=== PATIENT | female | born 1965 | race Caucasian/White ===

== ENCOUNTER 2020-03-29 19:50 | Inpatient (IN) | payer OTHER ==
[2020-03-29] MEDS ORDERED: IPRATROPIUM-ALBUTEROL 3 ML NEB INHALATION PRN (22:05)
[2020-03-29] MEDS ORDERED: FUROSEMIDE 10 MG/ML 4 ML VIAL IV STA (23:05)
[2020-03-29] MEDS: methylPREDNISolone SOD SUCCI 40 MG/ML 1 ML VIAL IV SCH (23:38)
[2020-03-29] MEDS: ALPRAZolam 0.25 MG TAB PO PRN (23:38)
[2020-03-30] MEDS ORDERED: IPRATROPIUM-ALBUTEROL 3 ML NEB INHALATION SCH
--- NOTE | 2020-03-30 00:06 | XR ---
EXAMINATION TYPE: XR chest 1V portable DATE OF EXAM: 03/29/2020 COMPARISON: 09/23/2012 HISTORY: Short of breath TECHNIQUE: FINDINGS: Heart and mediastinum are normal. Lungs are clear. Costophrenic angles are clear. There are no hilar masses. There are chest leads. Bony thorax is intact. IMPRESSION: Normal chest. No change.
[2020-03-30 06:07] LABS: Glucose,Whole Blood 156 mg/dL (75-99)
[2020-03-30] MEDS: methylPREDNISolone SOD SUCCI 40 MG/ML 1 ML VIAL IV SCH (06:16)
[2020-03-30] MEDS: INSULIN ASPART (NovoLOG) 100 UNIT/ML VIAL SQ SCH ×4 (06:16→20:27)
[2020-03-30 06:30] LABS: Basophils % (A) 0 %; Eosinophils % (A) 0 %; HCT 45.9 % (34.0-46.0); Lymphocytes # (A) 1.1 k/uL (1.0-4.8); Lymphocytes % (A) 5 %; MCH 28.5 pg (25.0-35.0); MCHC 30.4 g/dL (31.0-37.0); MCV 93.8 fL (80.0-100.0); Mean Platelet Volume 7.7; Monocytes # (A) 0.4 k/uL (0-1.0); Monocytes % (A) 2 %; Neutrophils # (A) 19.5 k/uL (1.3-7.7); Neutrophils % (A) 92 %; Platelet Count 313 k/uL (150-450); RBC 4.89 m/uL (3.80-5.40); RDW 13.3 % (11.5-15.5); WBC 21.2 k/uL (3.8-10.6)
[2020-03-30 06:35] LABS: African American GFR (CKD) >90 (>60 ml/min/1.73 sqM); Anion Gap 6 mmol/L; Blood Urea Nitrogen 20 mg/dL (7-17); Calcium 9.1 mg/dL (8.4-10.2); Carbon Dioxide 35 mmol/L (22-30); Chloride 99 mmol/L (98-107); Glucose 144 mg/dL (74-99); Non-African American GFR(CKD) >90 (>60 ml/min/1.73 sqM); Sodium 140 mmol/L (137-145)
[2020-03-30] MEDS: IPRATROPIUM-ALBUTEROL 3 ML NEB INHALATION SCH ×4 (08:12→20:43)
[2020-03-30] MEDS ORDERED: NON FORMULARY DRUG (L.Acidoph,Paracasei, B.Lactis [Probiotic] 1 CAP) PO SCH (09:00)
[2020-03-30] MEDS: ASPIRIN 81 MG PO SCH (10:52)
--- NOTE | 2020-03-30 11:41 | CONS ---
CONSULTATION Mrs. Funk is a 55-year-old female who was transferred from [facility] for further cardiac evaluation. The patient has moved recently here from [place], has a history of chronic severe chronic obstructive lung disease, chronic tobacco use. She uses oxygen at home. She had an acute dyspnea as well as an episode of chest discomfort. The discomfort was respirophasic. The patient has no prior cardiac history. She is not very active physically. She denies any dizziness or palpitation. She has occasional peripheral edema. No PND. No orthopnea. No syncope. She has a history of hypertension and chronic tobacco use. She has been told in the past that she has congestive heart failure, but has not underwent any cardiac workup and the details of that are not available to me. Her coronary risk factors are remarkable for the hypertension and chronic tobacco use. MEDICATIONS: Include amlodipine, aspirin, metoprolol tartrate 25 mg daily. REVIEW OF SYSTEMS: Respiratory system: She has chronic obstructive lung disease with chronic dyspnea on exertion, oxygen use as well as cough. GI system: No nausea, no vomiting. No recent GI bleeding. system: No dysuria or hematuria. Nervous system: She has a history of seizure as well as a prior history of TIA according to her. PHYSICAL EXAMINATION: She is a 55-year-old female, alert, oriented, no apparent distress, appears older than stated age. Blood pressure 130/80 with a heart rate in the 90s. HEAD: Normocephalic. Eyes sclerae anicteric. NECK: Good carotid upstroke. No bruit. No jugular venous distention. LUNGS: With decreased air exchange. No wheezes. HEART: Regular rate and rhythm S1, S2. No S3. No rub. ABDOMEN: Soft, obese, nontender. EXTREMITIES: No edema. LAB DATA: Revealed troponin less than 0.012 for 3 samples. BUN and creatinine 20 and 0.58, potassium of 4, hemoglobin of 14, white blood cell of 21.2. Chest x-ray revealed no acute infiltrate. EKG sinus mechanism, normal axis and intervals. Normal echocardiogram. IMPRESSION: 1. Chest discomfort, appears to be atypical for ischemic heart disease, reproducible by deep breathing as well as palpation. 2. Chronic dyspnea on exertion related to the chronic obstructive lung disease and chronic tobacco use. 3. History of hypertension. 4. Obesity. RECOMMENDATION: From the cardiac standpoint, I will re-initiate treatment with her beta sharon as well and follow her blood pressure. I will also recommend to proceed with a dobutamine stress echocardiogram and a transthoracic echo to further assess her status and guide her treatment. Depending on the results of testing, further recommendations will be made. I have discussed with the patient the importance of smoking cessation. Thank you for this consult. We will follow with you. KINDRA / CHRISTIANON: [id number] /
[2020-03-30 12:09] LABS: Cholesterol 248 mg/dL (<200); HDL Cholesterol 61 mg/dL (40-60); LDL Cholesterol,Calculated 171 mg/dL (0-99); Triglycerides 82 mg/dL (<150)
--- NOTE | 2020-03-30 12:40 | P.CNPUL ---
History of Present Illness Consult date: 03/30/20 Requesting physician: Eliz Dailey Reason for consult: dyspnea, COPD Chief complaint: Shortness of breath, chest pain History of present illness: This is a very pleasant 55-year-old female patient who is recently traveled here from [place]. She has a history of hypertension, anxiety, oxygen dependent chronic obstructive pulmonary disease and chronic tobacco dependence. She presented to [facility] with complaints of worsening shortness of breath and chest pain. She was referred here for further cardiac evaluation. Her chest pain is described as worsening with deep breath and on palpation. She does have a loose nonproductive cough. No fever, chills or night sweats. She is maintaining O2 saturations in the 90s on 2 L/m per nasal cannula. She's been afebrile. White count 21.2. Hemoglobin 14.0. Sodium 140. Potassium 4.0. Creatinine 0.58. Troponins negative 3. Rapid CoVID screen at [facility] was reported as negative. Review of Systems REVIEW OF SYSTEMS: CONSTITUTIONAL: Denies any recent significant weight loss or weight gain. EYES: Denies change in vision. EARS, NOSE, MOUTH, THROAT: Denies headaches, denies sore throat. CARDIOVASCULAR: Positive for chest pain, no palpitations or syncopal episodes. RESPIRATORY: Positive for shortness of breath, cough, congestion no hemoptysis. GASTROINTESTINAL: Denies change in appetite, denies abdominal pain GENITOURINARY: Denies hematuria, denies infections. MUSKULOSKELETAL: Denies pain, denies swelling. INTEGUMENTARY: Denies rash, denies eczema. NEUROLOGICAL: Denies recent memory loss, no recent seizure activity. PSYCHIATRIC: Denies anxiety, denies depression. HEMATOLOGIC/LYMPHATIC: Denies anemia, denies enlarged lymph nodes. Past Medical History Past Medical History: COPD, CVA/TIA, Hypertension Additional Past Medical History / Comment(s): TIA X2, herniated disck, carpal tunnel, arthritis History of Any Multi-Drug Resistant Organisms: None Reported Additional Past Surgical History / Comment(s): partial hysterectomy Past Anesthesia/Blood Transfusion Reactions: No Reported Reaction Past Psychological History: Anxiety, Depression Smoking Status: Current some day smoker - Past Family History Sister(s) Additional Family Medical History / Comment(s): both of cardiac arrest Mother Family Medical History: Congestive Heart Failure (CHF) Father Family Medical History: Congestive Heart Failure (CHF) Medications and Allergies Home Medications Medication Instructions Recorded Confirmed Type ALPRAZolam [Xanax] 1 tab PO DIRECTED PRN 03/29/20 03/29/20 History Amlodipine (Unknown Dose) 1 tab PO DAILY 03/29/20 03/29/20 History Aspirin EC [Ecotrin Low Dose] 81 mg PO DAILY 03/29/20 03/29/20 History L.acidoph,Paracasei, B.lactis 1 cap PO DAILY 03/29/20 03/29/20 History [Probiotic] Metoprolol Tartrate 25 mg PO HS 03/29/20 03/29/20 History Allergies Allergy/AdvReac Type Severity Reaction Status Date / Time No Known Allergies Allergy Verified 03/29/20 22:29 Physical Exam Vitals: Vital Signs Temp Pulse Pulse Resp BP Pulse Ox 03/30/20 12:00 98.0 F 109 H 14 130/72 92 L 03/30/20 11:39 89 03/30/20 11:31 88 03/30/20 08:00 98.2 F 109 H 14 130/85 95 03/30/20 03:49 84 18 03/30/20 03:48 98.3 F 84 18 139/73 93 L 03/30/20 00:00 98.2 F 102 H 20 149/83 95 03/29/20 22:00 98.1 F 120 H 24 156/83 95 Intake and Output 03/29/20 03/30/20 03/30/20 22:59 06:59 14:59 Intake Total 120 300 Balance 120 300 Intake: Oral 120 300 Other: Voiding Method Toilet Toilet # Voids 0 1 1 Weight 95.9 kg 95.9 kg GENERAL EXAM: Alert, pleasant 55-year-old female patient, on 2 L nasal cannula, comfortable in no apparent distress. HEAD: Normocephalic. EYES: Normal reaction of pupils, equal size. NOSE: Clear with pink turbinates. THROAT: No erythema or exudates. NECK: No masses, no JVD. CHEST: No chest wall deformity. LUNGS: Equal air entry with bilateral end expiratory wheeze, scattered rhonchi, diminished CVS: S1 and S2 normal with no audible murmur, regular rhythm. ABDOMEN: No hepatosplenomegaly, normal bowel sounds, no guarding or rigidity. SPINE: No scoliosis or deformity SKIN: No rashes CENTRAL NERVOUS SYSTEM: No focal deficits, tone is normal in all 4 extremities. EXTREMITIES: There is no peripheral edema. No clubbing, no cyanosis. Peripheral pulses are intact. Results - Laboratory Findings CBC and BMP: 03/30/20 05:22 03/30/20 05:22 Abnormal lab findings: Abnormal Labs 03/30/20 03/30/20 03/30/20 05:22 05:22 05:22 WBC 21.2 H MCHC 30.4 L Neutrophils # 19.5 H Carbon Dioxide 35 H BUN 20 H Glucose 144 H POC Glucose (mg/dL) Cholesterol 248 H LDL Cholesterol, Calc 171 H HDL Cholesterol 61 H 03/30/20 06:05 WBC MCHC Neutrophils # Carbon Dioxide BUN Glucose POC Glucose (mg/dL) 156 H Cholesterol LDL Cholesterol, Calc HDL Cholesterol - Diagnostic Findings Chest x-ray: image reviewed Assessment and Plan Assessment: Acute exacerbation of chronic obstructive pulmonary disease. Chest x-ray reveals no acute pulmonary process. Atypical chest pain Chronic and ongoing tobacco dependence Oxygen dependent chronic obstructive pulmonary disease. Maintained on oxygen for approximately one year now. Anxiety/depression Hypertension Plan: The patient was seen and evaluated by [facility] Guillen's, IV Solu-Medrol Empiric antibiotics in the form of doxycycline Educated regarding the importance of complete smoking cessation She would benefit from an outpatient follow-up in our office for pulmonary function testing to evaluate the severity of her COPD and make further recommendations regarding maintenance medications Stress test, echocardiogram pending We will continue to follow and make further recommendations based on her clinical status I, the cosigning physician, performed a history & physical examination of the patient. Lungs sounds with bilateral expiratory wheeze, few scattered rhonchi, diminished. Maintaining good O2 saturations in the 90s on 2 L/m per nasal cannula. I discussed the assessment and plan of care with my nurse practitioner, Liliana Seo. I attest to the above consultation as dictated by her. Time with Patient: Greater than 30
[2020-03-30 12:42] LABS: Glucose,Whole Blood 207 mg/dL (75-99)
--- NOTE | 2020-03-30 12:48 | P.HPIM ---
History of Present Illness This is a pleasant 55 years old female with past medical history of hypertension, COPD, CVA/TIA, anxiety and depression and cigarette smoker, she is on home oxygen of 2-3 L/m. She was transferred from [facility]. Presents because of chest pain and dyspnea. Patient describes the chest pain is central, sharp and tight for the last 3 days on and off, it was 10/10 in severity when she came in and I was 7/10. Associated with coughing and some phlegm which is started just now. Associated with dyspnea, paroxysmal nocturnal dyspnea and orthopnea Vitas looks stable, labs are [facility] showing mild leukocytosis of 11.3, rest of CBC is unremarkable with hemoglobin of 14.1 and platelets 260 9K, INR 0.9, glucose 94, creatinine 0.5, sodium 138, potassium 3.6, magnesium 1.7, troponin less than 0.032, covid19 is not detected in the nasal swab. Chest x-ray showing CHF and bilateral pleural effusion EKG showing normal sinus rhythm at [address]-T changes. Currently patient is on aspirin 81 mg, submental 60 mg and metoprolol 12.5 mg and on doxycycline Patient's symptoms looks like more of pulmonary origin., However cardiology will have to rule out cardiac causes Review of Systems CONSTITUTIONAL: No fever, no malaise, no fatigue. HEENT: No recent visual problems or hearing problems. Denied any sore throat. CARDIOVASCULAR: No orthopnea, PND, no palpitations, no syncope. PULMONARY: no hemoptysis. GASTROINTESTINAL: No diarrhea, no nausea, no vomiting, no abdominal pain. Normoactive bowel sounds. NEUROLOGICAL: No headaches, no weakness, no numbness. HEMATOLOGICAL: Denies any bleeding or petechiae. GENITOURINARY: Denies any burning micturition, frequency, or urgency. MUSCULOSKELETAL/RHEUMATOLOGICAL: Denies any joint pain, swelling, or any muscle pain. ENDOCRINE: Denies any polyuria or polydipsia. Past Medical History Past Medical History: COPD, CVA/TIA, Hypertension Additional Past Medical History / Comment(s): TIA X2, herniated disck, carpal tunnel, arthritis History of Any Multi-Drug Resistant Organisms: None Reported Additional Past Surgical History / Comment(s): partial hysterectomy Past Anesthesia/Blood Transfusion Reactions: No Reported Reaction Past Psychological History: Anxiety, Depression Smoking Status: Current some day smoker - Past Family History Sister(s) Additional Family Medical History / Comment(s): both of cardiac arrest Mother Family Medical History: Congestive Heart Failure (CHF) Father Family Medical History: Congestive Heart Failure (CHF) Medications and Allergies Home Medications Medication Instructions Recorded Confirmed Type ALPRAZolam [Xanax] 1 tab PO DIRECTED PRN 03/29/20 03/29/20 History Amlodipine (Unknown Dose) 1 tab PO DAILY 03/29/20 03/29/20 History Aspirin EC [Ecotrin Low Dose] 81 mg PO DAILY 03/29/20 03/29/20 History L.acidoph,Paracasei, B.lactis 1 cap PO DAILY 03/29/20 03/29/20 History [Probiotic] Metoprolol Tartrate 25 mg PO HS 03/29/20 03/29/20 History Allergies Allergy/AdvReac Type Severity Reaction Status Date / Time No Known Allergies Allergy Verified 03/29/20 22:29 Physical Exam Vitals: Vital Signs Temp Pulse Pulse Resp BP Pulse Ox 03/30/20 12:00 98.0 F 109 H 14 130/72 92 L 03/30/20 11:39 89 03/30/20 11:31 88 03/30/20 08:00 98.2 F 109 H 14 130/85 95 03/30/20 03:49 84 18 03/30/20 03:48 98.3 F 84 18 139/73 93 L 03/30/20 00:00 98.2 F 102 H 20 149/83 95 03/29/20 22:00 98.1 F 120 H 24 156/83 95 Intake and Output 03/29/20 03/30/20 03/30/20 22:59 06:59 14:59 Intake Total 120 300 Balance 120 300 Intake: Oral 120 300 Other: Voiding Method Toilet Toilet # Voids 0 1 1 Weight 95.9 kg 95.9 kg GENERAL: The patient is alert and oriented x3, not in any acute distress. Well developed, well nourished. HEENT: Pupils are round and equally reacting to light. EOMI. No scleral icterus. No conjunctival pallor. Normocephalic, atraumatic. No pharyngeal erythema. No thyromegaly. CARDIOVASCULAR: S1 and S2 present. No murmurs, rubs, or gallops. PULMONARY: Chest is clear to auscultation, no wheezing or crackles. ABDOMEN: Soft, nontender, nondistended, normoactive bowel sounds. No palpable organomegaly. MUSCULOSKELETAL: No joint swelling or deformity. EXTREMITIES: No cyanosis, clubbing, or pedal edema. NEUROLOGICAL: Gross neurological examination did not reveal any focal deficits. SKIN: No rashes. No petechiae Results CBC & Chem 7: 03/30/20 05:22 03/30/20 05:22 Labs: Abnormal Lab Results - Last 24 Hours (Table) 03/30/20 03/30/20 03/30/20 Range/Units 05:22 05:22 05:22 WBC 21.2 H (3.8-10.6) k/uL MCHC 30.4 L (31.0-37.0) g/dL Neutrophils # 19.5 H (1.3-7.7) k/uL Carbon Dioxide 35 H (22-30) mmol/L BUN 20 H (7-17) mg/dL Glucose 144 H (74-99) mg/dL POC Glucose (mg/dL) (75-99) mg/dL Cholesterol 248 H (<200) mg/dL LDL Cholesterol, Calc 171 H (0-99) mg/dL HDL Cholesterol 61 H (40-60) mg/dL 03/30/20 Range/Units 06:05 WBC (3.8-10.6) k/uL MCHC (31.0-37.0) g/dL Neutrophils # (1.3-7.7) k/uL Carbon Dioxide (22-30) mmol/L BUN (7-17) mg/dL Glucose (74-99) mg/dL POC Glucose (mg/dL) 156 H (75-99) mg/dL Cholesterol (<200) mg/dL LDL Cholesterol, Calc (0-99) mg/dL HDL Cholesterol (40-60) mg/dL Thrombosis Risk Factor Assmnt - Choose All That Apply Each Factor Represents 1 point: Age 41-60 years Thrombosis Risk Factor Assessment Total Risk Factor Score: 1 Thrombosis Risk Factor Assessment Level: Low Risk Assessment and Plan Assessment: Acute COPD exacerbation Hypertension acute and chronic hypoxic respiratory failure Chest pain, rule out cardiac causes Nicotine dependence History of CVA/TIA Anxiety, depression, no connective tissue Plan: This is a pleasant 55 years old female who presents with chest pain, CHF and COPD. Continue with antibiotics and steroids, continue with metoprolol. An with aspirin. Cardiology and pulmonary on the case. Labs and medication were reviewed.. Continue same treatment. Continue with symptomatic treatment. Resume home medication. Monitor lytes and vitals. DVT and GI prophylaxis. Further recommendations of the clinical course of the patient DVT prophylaxis: Subcutaneous heparin GI Prophylaxis: Pepcid PT/OT: Pending Prognosis is guarded
[2020-03-30] MEDS: METOPROLOL TARTRATE 12.5 MG TAB PO SCH ×2 (13:02→20:27)
[2020-03-30] MEDS: DOXYCYCLINE 100 MG CAP PO SCH ×2 (13:03→20:27)
[2020-03-30] MEDS: methylPREDNISolone SOD SUCCI 125 MG/2 ML VIAL IV SCH ×3 (13:03→22:59)
[2020-03-30 17:30] LABS: Glucose,Whole Blood 175 mg/dL (75-99)
[2020-03-30] MEDS: ALPRAZolam 0.25 MG TAB PO PRN (19:56)
[2020-03-30 20:20] LABS: Glucose,Whole Blood 189 mg/dL (75-99)
[2020-03-30] MEDS: HEPARIN SODIUM,PORCINE 5,000 UNIT/ML 1 ML VIAL SQ SCH (20:27)
[2020-03-30] MEDS: FAMOTIDINE 20 MG/2 ML VIAL IV SCH (20:27)
[2020-03-30] MEDS: SYMBICORT 160-4.5 MCG INHALER INHALATION SCH (20:43)
[2020-03-30] MEDS: HYDROcodone/APAP 5-325MG 1 EACH TAB PO PRN (23:00)
[2020-03-31] MEDS ORDERED: DOBUTamine DRIP for NUC MED 500 MG in DEXTROSE/WATER 1 250ML.BAG IV ONE (06:00)
[2020-03-31 06:14] LABS: Glucose,Whole Blood 136 mg/dL (75-99)
[2020-03-31 06:41] LABS: Basophils % (A) 0 %; Eosinophils # (A) 0.2 k/uL (0-0.7); Eosinophils % (A) 1 %; HCT 43.7 % (34.0-46.0); Lymphocytes % (A) 4 %; MCH 29.9 pg (25.0-35.0); MCHC 32.1 g/dL (31.0-37.0); MCV 93.4 fL (80.0-100.0); Mean Platelet Volume 7.6; Monocytes # (A) 0.4 k/uL (0-1.0); Monocytes % (A) 2 %; Neutrophils # (A) 22.6 k/uL (1.3-7.7); Neutrophils % (A) 93 %; Platelet Count 268 k/uL (150-450); RBC 4.68 m/uL (3.80-5.40); RDW 13.5 % (11.5-15.5); WBC 24.3 k/uL (3.8-10.6)
[2020-03-31] MEDS: methylPREDNISolone SOD SUCCI 125 MG/2 ML VIAL IV SCH ×4 (06:44→23:07)
[2020-03-31] MEDS: INSULIN ASPART (NovoLOG) 100 UNIT/ML VIAL SQ SCH ×4 (06:45→20:37)
[2020-03-31 07:00] LABS: African American GFR (CKD) >90 (>60 ml/min/1.73 sqM); Anion Gap 2 mmol/L; Blood Urea Nitrogen 23 mg/dL (7-17); Calcium 8.8 mg/dL (8.4-10.2); Carbon Dioxide 36 mmol/L (22-30); Chloride 102 mmol/L (98-107); Glucose 133 mg/dL (74-99); Non-African American GFR(CKD) >90 (>60 ml/min/1.73 sqM); Potassium 4.3 mmol/L (3.5-5.1); Sodium 140 mmol/L (137-145)
[2020-03-31] MEDS: SYMBICORT 160-4.5 MCG INHALER INHALATION SCH ×2 (08:59→19:40)
[2020-03-31] MEDS: IPRATROPIUM-ALBUTEROL 3 ML NEB INHALATION SCH ×4 (08:59→19:40)
[2020-03-31] MEDS ORDERED: MORPHINE SULFATE 2 MG/ML SYRINGE IVP STA (10:43)
--- NOTE | 2020-03-31 11:26 | P.PN ---
Subjective This is a pleasant 55 years old female with past medical history of hypertension, COPD, CVA/TIA, anxiety and depression and cigarette smoker, she is on home oxygen of 2-3 L/m. She was transferred from [facility]. Presents because of chest pain and dyspnea. Patient describes the chest pain is central, sharp and tight for the last 3 days on and off, it was 10/10 in severity when she came in and I was 7/10. Associated with coughing and some phlegm which is started just now. Associated with dyspnea, paroxysmal nocturnal dyspnea and orthopnea Vitas looks stable, labs are [facility] showing mild leukocytosis of 11.3, rest of CBC is unremarkable with hemoglobin of 14.1 and platelets 260 9K, INR 0.9, glucose 94, creatinine 0.5, sodium 138, potassium 3.6, magnesium 1.7, troponin less than 0.032, covid19 is not detected in the nasal swab. Chest x-ray showing CHF and bilateral pleural effusion EKG showing normal sinus rhythm at [address]-T changes. Currently patient is on aspirin 81 mg, submental 60 mg and metoprolol 12.5 mg and on doxycycline Patient's symptoms looks like more of pulmonary origin., However cardiology will have to rule out cardiac causes 03/31/2020 A breathing is better today, she still have coughing. She denies chest pain. However she denies from severe generalized headache associated with blurring vision especially of the left eye, which is started yesterday morning after I saw her and after she got her first dose of steroids. No weakness or numbness. No slurred speech We will send the patient for CT of the brain. Also we'll consult neurology as well Patient is going for stress echo today. Also patient to continue on steroids and oral antibiotics. She still have leukocytosis with WBC 24k Review of systems CONSTITUTIONAL: No fever, no malaise, no fatigue. HEENT: No recent visual problems or hearing problems. Denied any sore throat. CARDIOVASCULAR: No orthopnea, PND, no palpitations, no syncope. PULMONARY: no hemoptysis. GASTROINTESTINAL: No diarrhea, no nausea, no vomiting, no abdominal pain. Normoactive bowel sounds. NEUROLOGICAL:no weakness, no numbness. HEMATOLOGICAL: Denies any bleeding or petechiae. GENITOURINARY: Denies any burning micturition, frequency, or urgency. MUSCULOSKELETAL/RHEUMATOLOGICAL: Denies any joint pain, swelling, or any muscle pain. ENDOCRINE: Denies any polyuria or polydipsia. Active Medications Generic Name Dose Route Start Last Admin Trade Name Freq PRN Reason Stop Dose Admin Hydrocodone Bitart/Acetaminophen 1 each 03/30/20 12:47 03/30/20 23:00 Booker 5-325 PO 1 each Q6HR PRN Administration Pain Albuterol/Ipratropium 3 ml 03/29/20 22:05 Duoneb 0.5 Mg-3 Mg/3 Ml Soln INHALATION RT-QID PRN Shortness Of Breath Or Wheezing Albuterol/Ipratropium 3 ml 03/30/20 08:00 03/31/20 08:59 Duoneb 0.5 Mg-3 Mg/3 Ml Soln INHALATION Not Given RT-QID NOREEN Alprazolam 0.25 mg 03/29/20 23:05 03/30/20 19:56 Xanax PO 0.25 mg DAILY PRN Administration Anxiety Aspirin 81 mg 03/30/20 09:00 03/30/20 10:52 Aspirin PO 81 mg DAILY NOREEN Administration Budesonide/Formoterol Fumarate 2 puff 03/30/20 20:00 03/31/20 08:59 Symbicort 160-4.5 Mcg Inhaler INHALATION Not Given RT-BID NOREEN Doxycycline Monohydrate 100 mg 03/30/20 11:15 03/30/20 20:27 Vibramycin PO 100 mg BID NOREEN Administration Famotidine 20 mg 03/30/20 21:00 03/30/20 20:27 Pepcid IV 20 mg Q12HR NOREEN Administration Heparin Sodium (Porcine) 5,000 unit 03/30/20 21:00 03/30/20 20:27 Heparin SQ 5,000 unit Q12HR NOREEN Administration Dobutamine HCl/Dextrose 500 mg 250 mls @ 28.77 mls/hr 03/31/20 06:00 / IV Solution IV 03/31/20 14:41 .[id number] ONE Protocol 10 MCG/KG/MIN Insulin Aspart 0 unit 03/30/20 07:30 03/31/20 06:45 Novolog SQ 1 unit ACHS NOREEN Administration Protocol Methylprednisolone Sodium Succinate 60 mg 03/30/20 12:00 03/31/20 06:44 Solu-Medrol IV 60 mg Q6HR NOREEN Administration Metoprolol Tartrate 12.5 mg 03/30/20 11:30 03/30/20 20:27 Lopressor PO 12.5 mg BID NOREEN Administration Objective - Vital Signs Vital signs: Vital Signs Temp 98.1 F 03/31/20 08:21 Pulse 83 03/31/20 08:21 Resp 18 03/31/20 08:21 BP 138/89 03/31/20 08:21 Pulse Ox 97 03/31/20 08:21 Intake & Output 03/30/20 03/31/20 03/31/20 18:59 06:59 18:59 Intake Total 744 Output Total 600 Balance 144 Intake: Oral 744 Output: Urine 600 Other: Voiding Method Toilet # Voids 1 2 - Exam GENERAL: The patient is alert and oriented x3, not in any acute distress. Obese HEENT: Pupils are round and equally reacting to light. EOMI. No scleral icterus. No conjunctival pallor. Normocephalic, atraumatic. No pharyngeal erythema. No thyromegaly. CARDIOVASCULAR: S1 and S2 present. No murmurs, rubs, or gallops. PULMONARY: Chest is clear to auscultation, no wheezing or crackles. ABDOMEN: Soft, nontender, nondistended, normoactive bowel sounds. No palpable organomegaly. MUSCULOSKELETAL: No joint swelling or deformity. EXTREMITIES: No cyanosis, clubbing, or pedal edema. -NEUROLOGICAL: Gross neurological examination did not reveal any focal deficits. No weakness or asymmetry in all extremities. No loss of sensation. Blurred left eye more than try to SKIN: No rashes. no petechiae. - Labs CBC & Chem 7: 03/31/20 06:19 03/31/20 06:19 Labs: Abnormal Lab Results - Last 24 Hours (Table) 03/30/20 03/30/20 03/30/20 Range/Units 05:22 12:33 17:21 WBC (3.8-10.6) k/uL Neutrophils # (1.3-7.7) k/uL Carbon Dioxide (22-30) mmol/L BUN (7-17) mg/dL Creatinine (0.52-1.04) mg/dL Glucose (74-99) mg/dL POC Glucose (mg/dL) 207 H 175 H (75-99) mg/dL Cholesterol 248 H (<200) mg/dL LDL Cholesterol, Calc 171 H (0-99) mg/dL HDL Cholesterol 61 H (40-60) mg/dL 03/30/20 03/31/20 03/31/20 Range/Units 20:18 06:12 06:19 WBC (3.8-10.6) k/uL Neutrophils # (1.3-7.7) k/uL Carbon Dioxide 36 H (22-30) mmol/L BUN 23 H (7-17) mg/dL Creatinine 0.50 L (0.52-1.04) mg/dL Glucose 133 H (74-99) mg/dL POC Glucose (mg/dL) 189 H 136 H (75-99) mg/dL Cholesterol (<200) mg/dL LDL Cholesterol, Calc (0-99) mg/dL HDL Cholesterol (40-60) mg/dL 03/31/20 Range/Units 06:19 WBC 24.3 H (3.8-10.6) k/uL Neutrophils # 22.6 H (1.3-7.7) k/uL Carbon Dioxide (22-30) mmol/L BUN (7-17) mg/dL Creatinine (0.52-1.04) mg/dL Glucose (74-99) mg/dL POC Glucose (mg/dL) (75-99) mg/dL Cholesterol (<200) mg/dL LDL Cholesterol, Calc (0-99) mg/dL HDL Cholesterol (40-60) mg/dL Assessment and Plan Assessment: Acute COPD exacerbation Severe headache and blurred left eye, rule out stroke versus others Chest pain, rule out cardiac causes Hypertension acute and chronic hypoxic respiratory failure Nicotine dependence History of CVA/TIA Anxiety, depression, no connective tissue Plan: This is a pleasant 55 years old female who presents with chest pain, CHF and COPD. Continue with antibiotics and steroids, continue with metoprolol. And with aspirin. Cardiology and pulmonary on the case. We will order CT of the head, pain management. Consult neurology and ophthalmology Labs and medication were reviewed.. Continue same treatment. Continue with symptomatic treatment. Resume home medication. Monitor lytes and vitals. DVT and GI prophylaxis. Further recommendations of the clinical course of the patient DVT prophylaxis: Subcutaneous heparin GI Prophylaxis: Pepcid PT/OT: Pending Prognosis is guarded
--- NOTE | 2020-03-31 11:28 | CT ---
EXAMINATION TYPE: CT brain wo con DATE OF EXAM: 03/31/2020 COMPARISON: None HISTORY: CROSS, blurred vision CT DLP: 1070.[address] of the brain was performed. The ventricles, basal cisterns and sulci overlying the cerebral convexities demonstrate a normal appe arance. There is no evidence for intracranial hemorrhage or sulcal effacement. No mass effects are seen. Osseous calvarium is intact. If symptoms persist consider MRI as clinically warranted. IMPRESSION: 1. No acute intracranial process is seen at this time.
[2020-03-31] MEDS ORDERED: METOPROLOL TARTRATE 5 MG/5 ML VIAL IVP ONE (12:04)
--- NOTE | 2020-03-31 13:11 | P.PN ---
Subjective Progress Note Date: 03/31/20 Principal diagnosis: COPD, shortness of breath, chest pain This is a very pleasant 55-year-old female patient who is recently traveled here from [place]. She has a history of hypertension, anxiety, oxygen dependent chronic obstructive pulmonary disease and chronic tobacco dependence. She presented to [facility] with complaints of worsening shortness of breath and chest pain. She was referred here for further cardiac evaluation. Her chest pain is described as worsening with deep breath and on palpation. She does have a loose nonproductive cough. No fever, chills or night sweats. She is maintaining O2 saturations in the 90s on 2 L/m per nasal cannula. She's been afebrile. White count 21.2. Hemoglobin 14.0. Sodium 140. Potassium 4.0. Creatinine 0.58. Troponins negative 3. Rapid CoVID screen at [facility] was reported as negative. On 03/31/2020 patient seen in follow-up on selective care unit. She has a congested cough, still slightly bronchospastic, she remains on supplemental oxygen, currently on 2 L the pulse ox of 97%, hemodynamically she stable, she's been afebrile. She remains on IV steroids, empiric antibiotics, and bronchodilators. She denies any chest pain. No hemoptysis. Vital signs have been stable, patient is going for a stress echo cardiogram today. Objective - Vital Signs Vital signs: Vital Signs Temp 98.1 F 03/31/20 08:21 Pulse 65 03/31/20 12:00 Resp 18 03/31/20 12:00 BP 151/92 03/31/20 12:00 Pulse Ox 97 03/31/20 12:00 Intake & Output 03/30/20 03/31/20 03/31/20 18:59 06:59 18:59 Intake Total 744 Output Total 600 Balance 144 Weight 95.9 kg Intake: Oral 744 Output: Urine 600 Other: Voiding Method Toilet # Voids 1 2 - Exam GENERAL EXAM: Alert, very pleasant, 55-year-old white female, on room air, with a pulse ox of 97% comfortable in no apparent distress. HEAD: Normocephalic/atraumatic. EYES: Normal reaction of pupils, equal size. Conjunctiva pink, sclera white. NOSE: Clear with pink turbinates. THROAT: No erythema or exudates. NECK: No masses, no JVD, no thyroid enlargement, no adenopathy. CHEST: No chest wall deformity. Symmetrical expansion. LUNGS: Equal air entry with end expiratory wheezing, congestive cough CVS: Regular rate and rhythm, normal S1 and S2, no gallops, no murmurs, no rubs ABDOMEN: Soft, nontender. No hepatosplenomegaly, normal bowel sounds, no guarding or rigidity. EXTREMITIES: No clubbing, no edema, no cyanosis, 2+ pulses and upper and lower extremities. MUSCULOSKELETAL: Muscle strength and tone normal. SPINE: No scoliosis or deformity SKIN: No rashes CENTRAL NERVOUS SYSTEM: Alert and oriented -3. No focal deficits, tone is normal in all 4 extremities. PSYCHIATRIC: Alert and oriented -3. Appropriate affect. Intact judgment and insight. - Labs CBC & Chem 7: 03/31/20 06:19 03/31/20 06:19 Labs: Abnormal Lab Results - Last 24 Hours (Table) 03/30/20 03/30/20 03/31/20 Range/Units 17:21 20:18 06:12 WBC (3.8-10.6) k/uL Neutrophils # (1.3-7.7) k/uL Carbon Dioxide (22-30) mmol/L BUN (7-17) mg/dL Creatinine (0.52-1.04) mg/dL Glucose (74-99) mg/dL POC Glucose (mg/dL) 175 H 189 H 136 H (75-99) mg/dL 03/31/20 03/31/20 Range/Units 06:19 06:19 WBC 24.3 H (3.8-10.6) k/uL Neutrophils # 22.6 H (1.3-7.7) k/uL Carbon Dioxide 36 H (22-30) mmol/L BUN 23 H (7-17) mg/dL Creatinine 0.50 L (0.52-1.04) mg/dL Glucose 133 H (74-99) mg/dL POC Glucose (mg/dL) (75-99) mg/dL Assessment and Plan Plan: Assessment: Acute exacerbation of chronic obstructive pulmonary disease. Chest x-ray reveals no acute pulmonary process. Atypical chest pain Chronic and ongoing tobacco dependence Oxygen dependent chronic obstructive pulmonary disease. Maintained on oxygen for approximately one year now. Anxiety/depression Hypertension Plan: We'll continue with the current medical treatment, IV steroids, nebulized bronchodilators, and empiric antibiotics, vital signs have been stable, no hemoptysis. Patient is going for dobutamine stress echo today, we will continue to follow. Smoking cessation was advised I performed a history & physical examination of the patient and discussed their management with my nurse practitioner, Nena Haynes. I reviewed the nurse practitioner's note and agree with the documented findings and plan of care. Lung sounds are positive for diffuse wheezes throughout the lung [place]. The findings and the impression was discussed with the patient. I attest to the documentation by the nurse practitioner. Time with Patient: Less than 30
[2020-03-31] MEDS: DOXYCYCLINE 100 MG CAP PO SCH ×2 (13:28→20:33)
[2020-03-31] MEDS: FAMOTIDINE 20 MG/2 ML VIAL IV SCH (13:29)
[2020-03-31] MEDS: METOPROLOL TARTRATE 12.5 MG TAB PO SCH ×2 (13:29→20:32)
[2020-03-31] MEDS: ASPIRIN 81 MG PO SCH (13:29)
[2020-03-31] MEDS: HEPARIN SODIUM,PORCINE 5,000 UNIT/ML 1 ML VIAL SQ SCH ×2 (13:29→20:33)
[2020-03-31 13:35] LABS: Glucose,Whole Blood 143 mg/dL (75-99)
[2020-03-31] MEDS ORDERED: MORPHINE SULFATE 2 MG/ML SYRINGE IVP PRN (14:18)
[2020-03-31 16:38] LABS: Glucose,Whole Blood 161 mg/dL (75-99)
--- NOTE | 2020-03-31 16:42 | P.PN ---
Subjective Progress Note Date: 03/31/20 Principal diagnosis: Atypical chest pain HISTORY OF PRESENTING ILLNESS This is a pleasant 55-year-old female past medical history significant for anxiety, COPD on home oxygen, chronic tobacco use, hypertension who presented as a transfer secondary to atypical chest pain on 03/29/2020. She admits that episodes over the last 3-4 months which include shortness breath and chest tig htness which are sometimes associated with exertion and sometimes not. She is not very physically active. She was admitted and treated as COPD exacerbation and was placed on antibiotics. She has had normal troponins 3. 03/31/2020 She does admit to some anxiety regarding to recent sister's passing away in the past 3 months. She denies any recurrent chest discomfort and has been walking the halls. She is awaiting the results of her dobutamine stress. DIAGNOSTICS Laboratory reviewed, white count was elevated at 24.3 and patient has been placed on steroids. Creatinine 0.5, potassium 4.3.. Current cardiac medications include aspirin, Lopressor 12.5 mg twice a day. REVIEW OF SYSTEMS At the time of my exam: CONSTITUTIONAL: Denies fever or chills. CARDIOVASCULAR: Denies chest pain, +shortness of breath, no orthopnea, PND . RESPIRATORY: Denies cough. GASTROINTESTINAL: Denies abdominal pain, diarrhea, constipation, nausea or vomiting. HEMATOLOGIC: Denies history of anemia or bleeding. PHYSICAL EXAMINATION Blood pressure 151/92 heart rate 65 afebrile and maintaining oxygen saturation on 2 L nasal cannula. CONSTITUTIONAL: No apparent distress, obese. HEENT: Head is normocephalic. Pupils are equal, round. Sclerae anicteric. Mucous membranes of the mouth are moist. No JVD. No carotid bruit. CHEST EXAMINATION: Lungs are clear to auscultation. No chest wall tenderness is noted on palpation or with deep breathing. HEART EXAMINATION: Regular rate and rhythm. S1, S2 heard. No murmurs, gallops or rub. ABDOMEN: Soft, nontender. Positive bowel sounds. EXTREMITIES: 2+ peripheral pulses, no lower extremity edema and no calf tenderness. NEUROLOGIC EXAMINATION: Patient is awake, alert and oriented x3. ASSESSMENT 1. Chest discomfort which appears atypical for angina and is somewhat reproducible with deep breathing. Troponins negative 3. 2. Chronic dyspnea on exertion related to COPD 3. Hypertension 4. Obesity 5. Hyperlipidemia with most recent LDL 171 PLAN Await results of dobutamine stress echo and 2-D echo. Given elevated total cholesterol and LDL, and elevated ten-year ASCVD risk, we will initiate Lipitor. Advised tobacco cessation. Further recommendations pending results of above testing. Objective - Vital Signs Vital signs: Vital Signs Temp 98.2 F 03/31/20 15:44 Pulse 77 03/31/20 15:44 Resp 18 03/31/20 15:44 BP 144/80 03/31/20 15:44 Pulse Ox 97 03/31/20 15:44 Intake & Output 03/30/20 03/31/20 03/31/20 18:59 06:59 18:59 Intake Total 744 Output Total 600 Balance 144 Weight 95.9 kg Intake: Oral 744 Output: Urine 600 Other: Voiding Method Toilet # Voids 1 2 - Labs CBC & Chem 7: 03/31/20 06:19 03/31/20 06:19 Labs: Abnormal Lab Results - Last 24 Hours (Table) 03/30/20 03/30/20 03/31/20 Range/Units 17:21 20:18 06:12 WBC (3.8-10.6) k/uL Neutrophils # (1.3-7.7) k/uL Carbon Dioxide (22-30) mmol/L BUN (7-17) mg/dL Creatinine (0.52-1.04) mg/dL Glucose (74-99) mg/dL POC Glucose (mg/dL) 175 H 189 H 136 H (75-99) mg/dL 03/31/20 03/31/20 03/31/20 Range/Units 06:19 06:19 13:34 WBC 24.3 H (3.8-10.6) k/uL Neutrophils # 22.6 H (1.3-7.7) k/uL Carbon Dioxide 36 H (22-30) mmol/L BUN 23 H (7-17) mg/dL Creatinine 0.50 L (0.52-1.04) mg/dL Glucose 133 H (74-99) mg/dL POC Glucose (mg/dL) 143 H (75-99) mg/dL
[2020-03-31] MEDS ORDERED: BUTALB/APAP/CAFF 50-325-40MG TAB PO PRN (19:14)
--- NOTE | 2020-03-31 19:16 | P.CNNES ---
History of Present Illness Consult date: 03/31/20 Requesting physician: Silvestre Otoole Reason for Consult: Severe CROSS with left eye blurred vision History of Present Illness: Patient is a 55-year-old female, with no previous history of headaches, was admitted to the hospital for chest pain. Patient arrived to the [facility] as a transfer from [facility] on 03/29/2028 10 PM. Patient had presented to outside hospital for sudden sharp chest pain. She was worried because 2 of her sisters who are younger than her, earlier this year from heart disease. Patient's workup at outside hospital showed chest x- ray with possible CHF exacerbation with cardiomegaly. There is tiny bilateral pleural effusion and mild interstitial edema on background of chronic emphysematous change. Patient has history of hypertension and COPD, on 2-3 L of home oxygen. Patient states that she was given steroids for her emphysema. Yesterday morning on Tuesday, she woke up with a headache, which was very severe, rates 10/10, bifrontal, but was extending all around. It was involving the whole top of the head. Patient denies any nausea vomiting although she has been feeling photophobic and phonophobic. Patient does not have any history of mi graines. Patient got concerned because one of her sister age 36, of ruptured cerebral aneurysm in [place]. Patient's mother and father of CHF and her sister in September 2019 of [place]. Patient states that her headache at this time is 6/10 as she has received morphine, but prior, it was 10/10. Patient's blood pressure on arrival was 156/83, pulse rate 120, temperature 98.1. Computed tomography scan of head showed no acute process. Visualized paranasal sinuses are completely clear. Patient states that she has smoked 1 pack per day for 30 years, quit a year ago but now she has started back again here and there. Denies any alcohol. Denies any strokelike symptoms. Patient denies any previous history of headaches or migraines. Patient does take aspirin 81 mg daily at home. Review of Systems Patient complains of shortness of breath, denies diplopia. Complains of some blurred vision in the left eye. Also has chest pain, denies abdominal pain. Denies focal numbness tingling or weakness. Denies slurred speech. She denies excessive caffeine intake. Past Medical History Past Medical History: COPD, CVA/TIA, Hypertension Additional Past Medical History / Comment(s): TIA X2, herniated disck, carpal tunnel, arthritis History of Any Multi-Drug Resistant Organisms: None Reported Additional Past Surgical History / Comment(s): partial hysterectomy Past Anesthesia/Blood Transfusion Reactions: No Reported Reaction Past Psychological History: Anxiety, Depression Smoking Status: Current some day smoker - Past Family History Sister(s) Additional Family Medical History / Comment(s): both of cardiac arrest Mother Family Medical History: Congestive Heart Failure (CHF) Father Family Medical History: Congestive Heart Failure (CHF) Medications and Allergies Home Medications Medication Instructions Recorded Confirmed Type Aspirin EC [Ecotrin Low Dose] 81 mg PO DAILY 03/29/20 03/29/20 History L.acidoph,Paracasei, B.lactis 1 cap PO DAILY 03/29/20 03/29/20 History [Probiotic] Metoprolol Succinate [Toprol XL] 25 mg PO HS 03/30/20 03/30/20 History amLODIPine [Norvasc] 10 mg PO DAILY 03/30/20 03/30/20 History Allergies Allergy/AdvReac Type Severity Reaction Status Date / Time No Known Allergies Allergy Verified 03/29/20 22:29 Physical Examination - Vital Signs Vital Signs: Vital Signs Temp Pulse Pulse Resp BP Pulse Ox 03/31/20 16:00 18 03/31/20 15:44 98.2 F 77 18 144/80 97 03/31/20 12:00 65 18 151/92 97 03/31/20 08:21 98.1 F 83 18 138/89 97 03/31/20 08:00 83 18 03/31/20 04:00 98 F 74 16 123/73 93 L 03/31/20 00:00 98.2 F 78 18 138/76 93 L 03/30/20 20:55 91 18 03/30/20 20:43 90 18 03/30/20 20:00 98.5 F 85 18 147/77 94 L Intake and Output 03/31/20 03/31/20 03/31/20 06:59 14:59 22:59 Other: Voiding Method Toilet Toilet # Voids 2 Weight 95.9 kg On examination patient is a middle aged female, in appears to be somewhat in distress because of the headache. Also has some shortness of breath on oxygen. Speech and language functions are normal. Attention and concentration fund of knowledge is adequate. On cranial nerve examination pupils are round and reactive to light, visual [place] are full on confrontation. Extraocular muscles are intact with no nystagmus. Face is symmetric, tongue protrudes to the midline. Palatal elevation and sensation normal. Hearing and shoulder shrug normal. On muscle strength testing there is no pronator drift and the strength is normal in arms and legs effects are 1+ and plantars downgoing. Sensory touch is equal. No ataxia for [id number] testing. Tone and bulk of muscles normal. Gait deferred. No carotid bruit, S1 and S2 audible. Peripheral pulses present. Patient has some rhonchi. Abdomen soft nontender. Results - Laboratory Findings CBC and BMP: 03/31/20 06:19 03/31/20 06:19 Abnormal Lab Findings: Abnormal Labs 03/30/20 03/30/20 03/30/20 05:22 05:22 05:22 WBC 21.2 H MCHC 30.4 L Neutrophils # 19.5 H Carbon Dioxide 35 H BUN 20 H Creatinine Glucose 144 H POC Glucose (mg/dL) Cholesterol 248 H LDL Cholesterol, Calc 171 H HDL Cholesterol 61 H 03/30/20 03/30/20 03/30/20 06:05 12:33 17:21 WBC MCHC Neutrophils # Carbon Dioxide BUN Creatinine Glucose POC Glucose (mg/dL) 156 H 207 H 175 H Cholesterol LDL Cholesterol, Calc HDL Cholesterol 03/30/20 03/31/20 03/31/20 20:18 06:12 06:19 WBC MCHC Neutrophils # Carbon Dioxide 36 H BUN 23 H Creatinine 0.50 L Glucose 133 H POC Glucose (mg/dL) 189 H 136 H Cholesterol LDL Cholesterol, Calc HDL Cholesterol 03/31/20 03/31/20 03/31/20 06:19 13:34 16:30 WBC 24.3 H MCHC Neutrophils # 22.6 H Carbon Dioxide BUN Creatinine Glucose POC Glucose (mg/dL) 143 H 161 H Cholesterol LDL Cholesterol, Calc HDL Cholesterol Assessment and Plan Assessment: * New onset persistent, severe bifrontal and global headache on waking up, since yesterday morning on waking up. Exact etiology unclear. CT head showed no obvious abnormality. No evidence of paranasal sinus disease noted on CT head. Rule out sentinel bleed. * Positive family history of cerebral aneurysm * COPD * Hypertension * Tobacco use * Obesity. Plan: * CTA of head and neck to rule out cerebral aneurysm. * Fioricet as needed for headache. * ESR, CRP, JANICE * Neurology will follow.
[2020-03-31] MEDS: ALPRAZolam 0.25 MG TAB PO PRN (20:32)
[2020-03-31] MEDS: FAMOTIDINE 20 MG TAB PO SCH (20:32)
[2020-03-31] MEDS ORDERED: ATORVASTATIN 40 MG TAB PO SCH (21:00)
[2020-03-31 21:04] LABS: Glucose,Whole Blood 178 mg/dL (75-99)
--- NOTE | 2020-03-31 22:14 | CT ---
EXAMINATION TYPE: CT angio head neck DATE OF EXAM: 03/31/2020 COMPARISON: None HISTORY: Headache and vision changes. CT DLP: 590.9 mGycm Automated exposure control for dose reduction was used. CONTRAST: Performed with IV Contrast, patient injected with 65ml mL of Isovue 370. Images were obtained from the aortic arch to the vertex of the brain with IV contrast and 3-D post pr ocessed images. There is normal branching pattern of the great vessels on the aortic arch. There is bilateral arteria l flow in the subclavian arteries. There is arterial flow in the common internal and external carotid arteries bilaterally. I see no evidence of any significant stenosis. There is arterial flow in the v ertebral arteries bilaterally. There is arterial flow in the vertebrobasilar artery system. Left vert ebral artery is slightly larger than the right. There is no evidence of carotid or vertebral artery a neurysm or dissection. There is bilateral wide patency of the carotid artery bifurcations. There is arterial flow in the anterior middle and posterior cerebral arteries. There is no evidence o f intracranial aneurysm or neovascularity. There is no mass effect. There is normal contrast opacific ation of the venous sinuses. I see no evidence of hemodynamic stenosis. IMPRESSION: Negative CT angiogram of the neck. Negative CT angiogram of the brain.
[2020-03-31] MEDS: HYDROcodone/APAP 5-325MG 1 EACH TAB PO PRN (23:17)
[2020-04-01 00:18] VITALS: RESP 18
[2020-04-01] MEDS: INSULIN ASPART (NovoLOG) 100 UNIT/ML VIAL SQ SCH (06:30)
[2020-04-01 06:31] LABS: Glucose,Whole Blood 118 mg/dL (75-99)
[2020-04-01] MEDS: HYDROcodone/APAP 5-325MG 1 EACH TAB PO PRN (06:36)
[2020-04-01] MEDS: methylPREDNISolone SOD SUCCI 125 MG/2 ML VIAL IV SCH (06:38)
[2020-04-01 07:14] LABS: Basophils % (A) 0 %; Eosinophils # (A) 0.2 k/uL (0-0.7); Eosinophils % (A) 1 %; HCT 48.4 % (34.0-46.0); HGB 14.7 gm/dL (11.4-16.0); Hypochromasia Slight; Lymphocytes # (A) 1.1 k/uL (1.0-4.8); Lymphocytes % (A) 6 %; MCH 28.5 pg (25.0-35.0); MCHC 30.3 g/dL (31.0-37.0); Mean Platelet Volume 7.4; Monocytes # (A) 0.5 k/uL (0-1.0); Monocytes % (A) 3 %; Neutrophils % (A) 90 %; Platelet Count 325 k/uL (150-450); RBC 5.15 m/uL (3.80-5.40); RDW 13.4 % (11.5-15.5)
[2020-04-01] MEDS: DOXYCYCLINE 100 MG CAP PO SCH (08:36)
[2020-04-01] MEDS: ASPIRIN 81 MG PO SCH (08:36)
[2020-04-01] MEDS: FAMOTIDINE 20 MG TAB PO SCH (08:36)
[2020-04-01] MEDS: METOPROLOL TARTRATE 12.5 MG TAB PO SCH (08:36)
[2020-04-01] MEDS: HEPARIN SODIUM,PORCINE 5,000 UNIT/ML 1 ML VIAL SQ SCH (08:36)
[2020-04-01] MEDS: IPRATROPIUM-ALBUTEROL 3 ML NEB INHALATION SCH ×4 (08:54→16:27)
[2020-04-01] MEDS: SYMBICORT 160-4.5 MCG INHALER INHALATION SCH (08:55)
--- NOTE | 2020-04-01 09:24 | ECHOS ---
STRESS ECHOCARDIOGRAM DATE OF STUDY: 03/31/2020 LUMASON: Vial INDICATIONS: Chest pain. MEDICATIONS: BASELINE HEART RATE: 68 BASELINE BLOOD PRESSURE: 140/85 MAXIMUM HEART RATE: 142 MAXIMUM BLOOD PRESSURE: 150/71 85% MPHR: 142 100% MPHR: 167 METS: MAXIMUM STAGE REACHED: TOTAL EXERCISE TIME: CLINICAL INFORMATION: STRESS DATA: Heart rate 68, pressure 140/85 mmHg. Baseline EKG showed sinus mechanism. Dobutamine infusion at a dose of 10 mcg/kg per minute was initiated and increased to 20 mcg/kg per minute per protocol with max heart rate 142, which is about 85% of maximum predicted heart rate. Maximum blood pressure was 150/71 mmHg. Clinically the patient did not have any symptoms of chest pain or chest discomfort and the EKG did not show any significant ST or T-wave abnormalities concerning for ischemia. ECHOCARDIOGRAM IMAGES: Echocardiogram images from parasternal long axis view, parasternal short axis view, apical 4-chamber and apical 2-chamber views were obtained as the baseline images, at low-dose dobutamine infusion, at the peak of the heart rate as well as on recovery. The echocardiogram images showed good augmentation in the left ventricular systolic function without any evidence of wall motion abnormalities concerning for ischemia. CONCLUSION: 1. Normal EKG in response to dobutamine. 2. Normal echocardiogram in response to dobutamine. 3. Essentially normal dobutamine stress test for the patient. MMODL / IJN: [id number] /
[2020-04-01 10:21] VITALS: TEMP 97.7
--- NOTE | 2020-04-01 10:22 | P.PN ---
Subjective Progress Note Date: 04/01/20 Principal diagnosis: COPD, shortness of breath, chest pain This is a very pleasant 55-year-old female patient who is recently traveled here from [place]. She has a history of hypertension, anxiety, oxygen dependent chronic obstructive pulmonary disease and chronic tobacco dependence. She presented to [facility] with complaints of worsening shortness of breath and chest pain. She was referred here for further cardiac evaluation. Her chest pain is described as worsening with deep breath and on palpation. She does have a loose nonproductive cough. No fever, chills or night sweats. She is maintaining O2 saturations in the 90s on 2 L/m per nasal cannula. She's been afebrile. White count 21.2. Hemoglobin 14.0. Sodium 140. Potassium 4.0. Creatinine 0.58. Troponins negative 3. Rapid CoVID screen at [facility] was reported as negative. On 03/31/2020 patient seen in follow-up on selective care unit. She has a congested cough, still slightly bronchospastic, she remains on supplemental oxygen, currently on 2 L the pulse ox of 97%, hemodynamically she stable, she's been afebrile. She remains on IV steroids, empiric antibiotics, and bronchodilators. She denies any chest pain. No hemoptysis. Vital signs have been stable, patient is going for a stress echo cardiogram today. On 04/01/2020 patient seen in follow-up on selective care unit. Breathing better today, hardly any wheezes, vital signs are stable and is on 2 L of oxygen the pulse ox of 99%, afebrile. She states she is having severe headaches from the steroids, and refused to take this morning, however clinically she is improving, we'll can discontinue that IV steroids at this point, today's labs have been reviewed, with blood cell count is 19, hemoglobin is 14.7, platelet count is 325. Patient was having headaches and vision changes last night, she had a CT angiogram of the head and neck and both were negative, neurology following. Objective - Vital Signs Vital signs: Vital Signs Temp 97.4 F L 04/01/20 04:00 Pulse 64 04/01/20 09:07 Resp 18 04/01/20 04:00 BP 141/76 04/01/20 04:00 Pulse Ox 100 04/01/20 04:00 Intake & Output 03/31/20 04/01/20 04/01/20 18:59 06:59 18:59 Weight 95.9 kg 95.3 kg Other: Voiding Method Toilet Toilet # Voids 1 - Exam GENERAL EXAM: Alert, very pleasant, 55-year-old white female, on room air, with a pulse ox of 97% comfortable in no apparent distress. HEAD: Normocephalic/atraumatic. EYES: Normal reaction of pupils, equal size. Conjunctiva pink, sclera white. NOSE: Clear with pink turbinates. THROAT: No erythema or exudates. NECK: No masses, no JVD, no thyroid enlargement, no adenopathy. CHEST: No chest wall deformity. Symmetrical expansion. LUNGS: Equal air entry with end expiratory wheezing, congestive cough CVS: Regular rate and rhythm, normal S1 and S2, no gallops, no murmurs, no rubs ABDOMEN: Soft, nontender. No hepatosplenomegaly, normal bowel sounds, no guarding or rigidity. EXTREMITIES: No clubbing, no edema, no cyanosis, 2+ pulses and upper and lower extremities. MUSCULOSKELETAL: Muscle strength and tone normal. SPINE: No scoliosis or deformity SKIN: No rashes CENTRAL NERVOUS SYSTEM: Alert and oriented -3. No focal deficits, tone is normal in all 4 extremities. PSYCHIATRIC: Alert and oriented -3. Appropriate affect. Intact judgment and insight. - Labs CBC & Chem 7: 04/01/20 06:46 03/31/20 06:19 Labs: Abnormal Lab Results - Last 24 Hours (Table) 03/31/20 03/31/20 03/31/20 Range/Units 13:34 16:30 20:37 WBC (3.8-10.6) k/uL Hct (34.0-46.0) % MCHC (31.0-37.0) g/dL Neutrophils # (1.3-7.7) k/uL POC Glucose (mg/dL) 143 H 161 H 178 H (75-99) mg/dL 04/01/20 04/01/20 Range/Units 06:28 06:46 WBC 19.0 H (3.8-10.6) k/uL Hct 48.4 H (34.0-46.0) % MCHC 30.3 L (31.0-37.0) g/dL Neutrophils # 17.0 H (1.3-7.7) k/uL POC Glucose (mg/dL) 118 H (75-99) mg/dL Assessment and Plan Plan: Assessment: Acute exacerbation of chronic obstructive pulmonary disease. Chest x-ray r eveals no acute pulmonary process. Atypical chest pain Chronic and ongoing tobacco dependence Oxygen dependent chronic obstructive pulmonary disease. Maintained on oxygen for approximately one year now. Anxiety/depression Hypertension Plan: We'll discontinue the steroids, continue with nebulized bronchodilators, patient is improving, increase activity as tolerated, wean FiO2, no fever or chills, we'll continue to follow. I performed a history & physical examination of the patient and discussed their management with my nurse practitioner, Nena Haynes. I reviewed the nurse practitioner's note and agree with the documented findings and plan of care. Lung sounds are positive for diffuse wheezes throughout the lung [place]. The findings and the impression was discussed with the patient. I attest to the documentation by the nurse practitioner. Time with Patient: Less than 30
--- NOTE | 2020-04-01 10:52 | P.PN ---
Subjective Progress Note Date: 04/01/20 CHIEF COMPLAINT: chest pain HISTORY OF PRESENT ILLNESS: Patient examined this morning at the bedside. She denies chest pain. Denies shortness of breath. She underwent stress testing yesterday and results are pending. Vital signs are stable. Her rate is in the 60s and 70s. PHYSICAL EXAM: VITAL SIGNS: Reviewed. GENERAL: Well-developed in no acute distress. NECK: Supple. No JVD or thyromegaly LUNGS: Respirations even and unlabored. Lungs essentially clear to auscultation bilaterally. HEART: Regular rate and rhythm. S1 and S2 heard. EXTREMITIES: Normal range of motion. No clubbing or cyanosis. Peripheral pulses intact. No lower extremity edema ASSESSMENT: 1. Chest discomfort which appears atypical for angina and is somewhat reproducible with deep breathing. Troponins negative 3. 2. Chronic dyspnea on exertion related to COPD 3. Hypertension 4. Obesity 5. Hyperlipidemia with most recent LDL 171 PLAN: -Stress test completed yesterday. Await results. -If stress test is negative, patient may be discharged home from a cardiac standpoint Nurse practitioner note has been reviewed by physician. Signing provider agrees with the documented findings, assessment, and plan of care. Objective - Vital Signs Vital signs: Vital Signs Temp 97.4 F L 04/01/20 04:00 Pulse 64 04/01/20 09:07 Resp 18 04/01/20 04:00 BP 141/76 04/01/20 04:00 Pulse Ox 100 04/01/20 04:00 Intake & Output 03/31/20 04/01/20 04/01/20 18:59 06:59 18:59 Weight 95.9 kg 95.3 kg Other: Voiding Method Toilet Toilet # Voids 1 - Labs CBC & Chem 7: 04/01/20 06:46 03/31/20 06:19 Labs: Abnormal Lab Results - Last 24 Hours (Table) 03/31/20 03/31/20 03/31/20 Range/Units 13:34 16:30 20:37 WBC (3.8-10.6) k/uL Hct (34.0-46.0) % MCHC (31.0-37.0) g/dL Neutrophils # (1.3-7.7) k/uL POC Glucose (mg/dL) 143 H 161 H 178 H (75-99) mg/dL 04/01/20 04/01/20 Range/Units 06:28 06:46 WBC 19.0 H (3.8-10.6) k/uL Hct 48.4 H (34.0-46.0) % MCHC 30.3 L (31.0-37.0) g/dL Neutrophils # 17.0 H (1.3-7.7) k/uL POC Glucose (mg/dL) 118 H (75-99) mg/dL
[2020-04-01 11:48] LABS: Glucose,Whole Blood 87 mg/dL (75-99)
[2020-04-01] MEDS ORDERED: amLODIPine 2.5 MG TAB PO STA (12:37)
[2020-04-01 14:03] VITALS: BP 175/82; PULSE 62
--- NOTE | 2020-04-01 15:56 | P.PN ---
Subjective Progress Note Date: 04/01/20 Patient states her headaches have much improved. Rates it 5/10. Visual symptoms have improved. Patient believes her headache was related to the use of steroids. Telemetry monitoring showing sinus rhythm. No arrhythmia. Objective - Vital Signs Vital signs: Vital Signs Temp 97.7 F 04/01/20 11:15 Pulse 60 04/01/20 13:21 Resp 18 04/01/20 11:15 BP 175/82 04/01/20 11:15 Pulse Ox 96 04/01/20 11:15 Intake & Output 03/31/20 04/01/20 04/01/20 18:59 06:59 18:59 Intake Total 600 Balance 600 Weight 95.9 kg 95.3 kg Intake: Oral 600 Other: Voiding Method Toilet Toilet # Voids 1 2 - Exam Nonfocal. - Labs CBC & Chem 7: 04/01/20 06:46 03/31/20 06:19 Labs: Abnormal Lab Results - Last 24 Hours (Table) 03/31/20 03/31/20 04/01/20 Range/Units 16:30 20:37 06:28 WBC (3.8-10.6) k/uL Hct (34.0-46.0) % MCHC (31.0-37.0) g/dL Neutrophils # (1.3-7.7) k/uL POC Glucose (mg/dL) 161 H 178 H 118 H (75-99) mg/dL 04/01/20 Range/Units 06:46 WBC 19.0 H (3.8-10.6) k/uL Hct 48.4 H (34.0-46.0) % MCHC 30.3 L (31.0-37.0) g/dL Neutrophils # 17.0 H (1.3-7.7) k/uL POC Glucose (mg/dL) (75-99) mg/dL Assessment and Plan Assessment: * New onset persistent, severe bifrontal and global headache on waking up, since yesterday morning on waking up. Exact etiology unclear. CT head showed no obvious abnormality. No evidence of paranasal sinus disease noted on CT head. CTA of head and neck negative with no aneurysm. * Positive family history of cerebral aneurysm * COPD * Hypertension * Tobacco use * Obesity. Plan: * CTA of head and neck completely negative, with no stenosis, occlusion, dissection or cerebral aneurysm. * Fioricet as needed for headache. * ESR 8, CRP <5, JANICE negative * Neurologically clear for discharge. * Follow-up with ophthalmology outpatient if her visual symptoms persist. * Complete tobacco cessation. * May follow up with neurology locally, if her headache persists.
--- NOTE | 2020-04-01 22:03 | CONS ---
CONSULTATION HISTORY: This is a 55-year-old white female with a history of hypertension and COPD who complained of shortness of breath and chest pain while at [facility]. She was transferred to [facility] for evaluation of her cardiac function. Since being admitted, she complained of a severe headache along with visual changes. She states that her vision became blurry, though she denies any visual field deficits or diplopia during that period. The patient stated that she went to sleep in the evening and when she woke up, her vision had returned to its normal baseline state. The patient admits that she has not had an eye exam in a long time. In fact, she cannot remember ever having received an eye exam ever in her life. Currently she is using reading glasses to help her see, though she states that they are "not working very well anymore." EXAMINATION: Visual acuity without correction measured 20/40 bilaterally. Pupils were equal and reactive to light. There was no afferent defect. Extraocular movements were full in all gaze positions. There was no diplopia elicited in any gaze position. On penlight exam, the lids were normal. The conjunctivae were quiet. Both corneas were clear. The anterior chambers were quiet and the iris was normal. The lens appeared well centered. IMPRESSION: Visual disturbance accompanied by headaches. These appear to be temporary in nature, and currently the patient is resting comfortably without any visual complaints at this time. I would recommend that she receive a thorough complete eye exam upon discharge, and we would be happy to see her in the very near future in my office. MMFANNY / IJN: [id number] /
--- NOTE | 2020-04-01 23:21 | P.DS ---
Providers Date of admission: 03/29/20 21:56 Attending physician: Eliz Dailey Consults: 03/29/20 22:03 Consult Physician Routine Consulting Provider: Sheri Young Consult Reason/Comments: chest pain Do you want consulting provider notified?: Yes Placement Type Exists?: Yes 03/29/20 23:07 Consult Physician Routine Consulting Provider: Mu Stovall Consult Reason/Comments: copd, home O2 Do you want consulting provider notified?: Yes 03/31/20 11:22 Consult Physician Urgent Consulting Provider: Cyn Herring Consult Reason/Comments: Severe headache with left eye blurred vision Do you want consulting provider notified?: Yes Primary care physician: [facility] Course: Diagnoses: Acute COPD exacerbation Severe headache and blurred left eye, rule out stroke versus others Chest pain, rule out cardiac causes Hypertension Leukocytosis, could be due to her bronchitis and steroid effect acute and chronic hypoxic respiratory failure Nicotine dependence History of CVA/TIA Anxiety, depression, no connective tissue Hospital course: This is a pleasant 55 years old female with past medical history of hypertension, COPD, CVA/TIA, anxiety and depression and cigarette smoker, she is on home oxygen of 2-3 L/m. She was transferred from [facility]. She doesn't follow up with PCP here in [place] she was recently moved from [place] and she supposed to see Dr. Janet Luke however has not done yet. Presents because of chest pain and dyspnea. chest pain pleuritic and associated with cough and phlegm. Patient found to have COPD exacerbation with bronchitis and treated with some antral on doxycycline. Box Bender evaluated the patient and she underwent stress echo which was negative. Her leukocytosis was improving from 24 down to 19 K today On 03/31 patient developed severe frontal headache with left upper blurred vision, neurologist evaluated the patient CTA of the brain was negative. Patient was treated symptomatically and on the day of discharge her headache and blurred vision have resolved, patient was instructed to follow up with fast food manager as an outpatient. Patient does not want to wait to see fast food manager in house as well. On the Date of discharge her dyspnea and chest pain are significantly improved. No other complaints. No abdominal pain Patient was cleared for discharge by cardiology, pulmonary and neurology services Patient will be discharged on oral antibiotics doxycycline. Breathing treatment, aspirin Problems and management plan were discussed with the patient and he verbalized understanding and acceptance Patient was found stable and can be discharged home however he needs follow-up as an outpatient. Patient was instructed to follow up with PCP within one week and patient agrees. Appointment is made for the patient with Dr. Stovall on 04/15 patient agrees with this appointment date and time she stated she will follow-up. Cardiology office They will call the patient. Patient referred for fast food manager an outpatient as her blood patient is completely resolved. Patient states she will call and make appointment with her PCP Dr. sanz and she has to contact information. Gen: patient is a AAOx3, no distress. Obese CVS: S1-S2, RRR, no murmur Lungs: B/L CTA, no wheezing Abdomen: soft, no distention, no tenderness, positive bowel sounds Extremity: no leg edema or induration Time spent more than 35 minutes Plan - Discharge Summary New Discharge Prescriptions: New Ipratropium-Albuterol Nebulize [Duoneb 0.5 mg-3 mg/3 ml Soln] 3 ml INHALATION RT-QID PRN #100 ml PRN Reason: Shortness Of Breath Or Wheezing Butalb/APAP/Caff 50-325-40Mg [Fioricet 50-325-40] 1 each PO Q12HR PRN 2 Days #4 tab PRN Reason: Headache Atorvastatin [Lipitor] 40 mg PO HS #30 tab Metoprolol Tartrate [Lopressor] 12.5 mg PO BID #60 tab Famotidine [Pepcid] 20 mg PO Q12HR 7 Days #14 tab Budesonide-Formot 160-4.5 Mcg [Symbicort 160-4.5 Mcg Inhaler] 2 puff INHAL ATION RT-BID #1 inh Doxycycline [Vibramycin] 100 mg PO BID 4 Days #8 cap Continue Aspirin EC [Ecotrin Low Dose] 81 mg PO DAILY L.acidoph,Paracasei, B.lactis [Probiotic] 1 cap PO DAILY amLODIPine [Norvasc] 10 mg PO DAILY Discontinued Metoprolol Succinate [Toprol XL] 25 mg PO HS Discharge Medication List Aspirin EC [Ecotrin Low Dose] 81 mg PO DAILY 03/29/20 [History] L.acidoph,Paracasei, B.lactis [Probiotic] 1 cap PO DAILY 03/29/20 [History] amLODIPine [Norvasc] 10 mg PO DAILY 03/30/20 [History] Atorvastatin [Lipitor] 40 mg PO HS #30 tab 04/01/20 [Rx] Budesonide-Formot 160-4.5 Mcg [Symbicort 160-4.5 Mcg Inhaler] 2 puff INHALATION RT-BID #1 inh 04/01/20 [Rx] Butalb/APAP/Caff 50-325-40Mg [Fioricet 50-325-40] 1 each PO Q12HR PRN 2 Days #4 tab 04/01/20 [Rx] Doxycycline [Vibramycin] 100 mg PO BID 4 Days #8 cap 04/01/20 [Rx] Famotidine [Pepcid] 20 mg PO Q12HR 7 Days #14 tab 04/01/20 [Rx] Ipratropium-Albuterol Nebulize [Duoneb 0.5 mg-3 mg/3 ml Soln] 3 ml INHALATION RT-QID PRN #100 ml 04/01/20 [Rx] Metoprolol Tartrate [Lopressor] 12.5 mg PO BID #60 tab 04/01/20 [Rx] Follow up Appointment(s)/Referral(s): Sheri Young MD [STAFF PHYSICIAN] - 2 Weeks (The office will call an appointment.) Erickson Kenyon MD [STAFF PHYSICIAN] - 1 Week (Please ask your primary doctor to refer you to an optomalogist. ) [facility], [NON-STAFF] - 1 Week Mu Stovall MD [STAFF PHYSICIAN] - 04/15/20 9:30 am (Your appointment will be with Dr Winchester.) Activity/Diet/Wound Care/Special Instructions: heart healthy diet activity is limited till you see your doctor please call and make appointment with your family care doctor Dr. Luke in one week , you have the contact information as you informed the medical team Discharge Disposition: HOME WITH HOME HEALTH SERVICES
--- NOTE | 2020-04-02 08:17 | ECHOF ---
Referral Reason:cp MEASUREMENTS -------- HEIGHT: 170.2 cm WEIGHT: 95.7 kg BP: 123/73 RVIDd: 3.4 cm (< 3.3) IVSd: 1.2 cm (0.6 - 1.1) LVIDd: 5.2 cm (3.9 - 5.3) LVPWd: 1.3 cm (0.6 - 1.1) IVSs: 1.7 cm LVIDs: 3.3 cm LVPWs: 2.0 cm LA Diam: 3.3 cm (2.7 - 3.8) LAESV Index (A-L): 30.04 ml/m Ao Diam: 3.2 cm (2.0 - 3.7) AV Cusp: 2.2 cm (1.5 - 2.6) MV EXCURSION: 15.618 mm (> 18.000) MV EF SLOPE: 65 mm/s (70 - 150) EPSS: 0.6 cm MV E Fermin: 1.02 m/s MV DecT: 212 ms MV A Fermin: 1.04 m/s MV E/A Ratio: 0.98 RAP: 5.00 mmHg RVSP: 26.52 mmHg FINDINGS -------- Sinus rhythm. This was a technically adequate study. The left ventricular size is normal. There is mild concentric left ventricular hypertrophy. Overa ll left ventricular systolic function is normal with, an EF between 60 - 65 %. The right ventricle is mildly enlarged. LA is midly dilated 29-33ml/m2. The right atrium is normal in size. Interatrial and interventricular septum intact. The aortic valve is trileaflet and appears structurally normal. [id number] mitral regurgitation is present. Trace tricuspid regurgitation present. The pulmonic valve was not well visualized. The aortic root size is normal. Normal inferior vena cava with normal inspiratory collapse consistent with estimated right atrial pre ssure of 5 mmHg. There is no pericardial effusion. CONCLUSIONS -------- 1. The left ventricular size is normal. 2. There is mild concentric left ventricular hypertrophy. 3. Overall left ventricular systolic function is normal with, an EF between 60 - 65 %. 4. The right ventricle is mildly enlarged. 5. LA is midly dilated 29-33ml/m2. 6. [id number] mitral regurgitation is present. 7. Trace tricuspid regurgitation present. 8. The pulmonic valve was not well visualized. 9. There is no pericardial effusion. TIMBER FRAMER HELPER: lAba Pandey RDCS
== END 2020-04-01 16:24 | disposition home health service (06) | DRG 190 ==
LOC: 3SCARD 21:56
PROVIDERS: ADMIT Internal Medicine; ATTEND Internal Medicine
DX: J44.1 Chronic obstructive pulmonary disease with (acute) exacerbation (principal); J96.21 Acute and chronic respiratory failure with hypoxia; I63.9 Cerebral infarction, unspecified; G44.89 Other headache syndrome; H53.8 Other visual disturbances; F17.210 Nicotine dependence, cigarettes, uncomplicated; D72.829 Elevated white blood cell count, unspecified; T38.0X5A Adverse effect of glucocorticoids and synthetic analogues, initial encounter; E66.9 Obesity, unspecified; Z68.32 Body mass index [BMI] 32.0-32.9, adult; E78.5 Hyperlipidemia, unspecified; F32.9 Major depressive disorder, single episode, unspecified; F41.9 Anxiety disorder, unspecified; I10 Essential (primary) hypertension; R07.89 Other chest pain; Z82.41 Family history of sudden cardiac death; Z82.49 Family history of ischemic heart disease and other diseases of the circulatory system; Z82.5 Family history of asthma and other chronic lower respiratory diseases; Z86.73 Personal history of transient ischemic attack (TIA), and cerebral infarction without residual deficits; Z90.711 Acquired absence of uterus with remaining cervical stump; Z99.81 Dependence on supplemental oxygen; Z79.82 Long term (current) use of aspirin; Z79.899 Other long term (current) drug therapy; Z20.828 Contact with and (suspected) exposure to other viral communicable diseases; M19.90 Unspecified osteoarthritis, unspecified site
CPT/HCPCS: 70450; 70496; 70498; 71045; 80048; 80061; 84145; 84484; 85025; 85652; 86038; 86140; 93306; 93351; 94640